=== PATIENT | male | born 1990 | race Caucasian/White ===

== ENCOUNTER 2018-03-28 14:45 | Emergency (ER) | payer SELFPAY ==
[~2018-03-28] VITALS: Ht 172.7 cm; Wt 83.9 kg
[2018-03-28 14:52] VITALS: BP_SYST 142
[2018-03-28] MEDS: DIPH-TET-PERTUS Vaccine 0.5 ML VIAL (ADACEL) I.M. ONE (15:43)
[2018-03-28] MEDS: BACITRACIN 1 GM OINT TP ONE (15:43)
[2018-03-28] MEDS: LIDOCAINE 1% 10 MG/ML, 20 ML MDV INJ ONE (15:43)
[2018-03-28 16:20] VITALS: BP_SYST 138
== END 2018-03-28 16:20 | disposition home or self-care (01) ==
LOC: SED 14:45
DX: S81.811A Laceration without foreign body, right lower leg, initial encounter (principal); W19.XXXA Unspecified fall, initial encounter; Y93.89 Activity, other specified; Y92.89 Other specified places as the place of occurrence of the external cause; Y99.8 Other external cause status
CPT/HCPCS: 12001; 90471; 90715; 99283; J2001